=== PATIENT | male | born 2000 | race Two or more races ===

== ENCOUNTER 2022-11-17 05:38 | Emergency (ER) | payer OTHER ==
[2022-11-17 06:16] VITALS: TEMP 98.3; BMI 33.0
[2022-11-17] MEDS ORDERED: SODIUM CHLORIDE 0.9% 500 ML INFUS.BAG IV ONE ×2 (08:33→12:19)
[2022-11-17] MEDS ORDERED: MAG HYDROX/AL HYDROX/SIMETH 30 ML UNIT-DOSE CUP PO ONE ×2 (08:41→12:19)
[2022-11-17] MEDS ORDERED: ACETAMINOPHEN 1000 MG/100 ML BAG IVPB ONE (08:41)
[2022-11-17] MEDS ORDERED: FAMOTIDINE 20 MG/50 ML IVPB 20 MG/50 ML MG IVPB ONE ×3 (08:41→12:19)
[2022-11-17] MEDS ORDERED: ACETAMINOPHEN INJECTION 100 ML IVPB ONE (08:57)
[2022-11-17] MEDS ORDERED: MAG HYDROX/AL HYDROX/SIMETH 30 ML UNIT-DOSE CUP ONE (08:57)
[2022-11-17 10:30] LABS: BASO % 0.3 % (0-2.0); EOS % 0.2 % (0-4.5); HEMATOCRIT 41.6 % (35.4-49); HEMOGLOBIN 13.5 GM/dL (11.7-16.9); MCH 23.1 pg (25.7-33.7); MCHC 32.5 g/dl (32.0-35.9); MEAN CELL VOLUME 70.9 fl (80-96); MEAN PLT VOLUME 8.4 fl (7.5-11.1); MONO % 5.5 % (3.8-10.2); PLATELET COUNT 279 10^3/uL (134-434); RBC 5.87 M/mm3 (4.00-5.60); RDW 14.9 % (11.9-15.9); WHITE BLOOD COUNT 8.9 K/mm3 (4.0-10.0)
[2022-11-17 10:45] LABS: POTASSIUM 3.8 mmol/L (3.5-5.1)
[2022-11-17 10:47] LABS: CALCIUM 9.4 mg/dL (8.5-10.1)
[2022-11-17 10:48] LABS: ALBUMIN 4.6 g/dl (3.4-5.0); BLOOD UREA NITROGEN 8.8 mg/dL (7-18)
[2022-11-17 10:51] LABS: CREATININE 0.8 mg/dL (0.55-1.3)
[2022-11-17 10:52] LABS: BILIRUBIN,TOTAL 0.4 mg/dL (0.2-1); TOT PROT 8.4 g/dl (6.4-8.2)
[2022-11-17 12:19] LABS: MAGNESIUM 2.2 mg/dL (1.8-2.4)
[2022-11-17 14:12] VITALS: BP 138/88; PULSE 75; RESP 14
== END 2022-11-17 14:12 | disposition home or self-care (01) ==
LOC: JER 05:38
PROC: 3E033GC Introduction of Other Therapeutic Substance into Peripheral Vein, Percutaneous Approach (ICD-10-PCS; principal; 2022-11-17)
DX: R00.2 Palpitations (principal); I49.3 Ventricular premature depolarization
CPT/HCPCS: 36415; 71046-TC-FY; 80053; 83735; 84443; 84484; 85025; 85379; 93005; 93010; 93308; 99285-25

== ENCOUNTER 2023-11-05 10:09 | Emergency (ER) | payer OTHER ==
[2023-11-05 10:13] VITALS: BP 130/80; PULSE 94; RESP 18; TEMP 98.6; BMI 28.5
== END 2023-11-05 12:17 | disposition home or self-care (01) ==
LOC: JER 10:09
DX: R00.2 Palpitations (principal)
CPT/HCPCS: 71046-TC-FY; 93005; 93010; 99284-25

== ENCOUNTER 2024-01-26 19:39 | Observation (INO) | payer OTHER ==
[2024-01-26 19:50] VITALS: BMI 29.0
[2024-01-26 22:05] LABS: BASO % 0.5 % (0-2.0); EOS % 2.2 % (0-4.5); HEMATOCRIT 43.4 % (35.4-49); LYMPH % 17.2 % (8-40); MCH 22.8 pg (25.7-33.7); MCHC 32.3 g/dl (32.0-35.9); MEAN CELL VOLUME 70.5 fl (80-96); MEAN PLT VOLUME 7.7 fl (7.5-11.1); MONO % 7.8 % (3.8-10.2); NEUT % 72.3 % (42.8-82.8); PLATELET COUNT 285 10^3/uL (134-434); RBC 6.17 M/mm3 (4.00-5.60); RDW 15.4 % (11.9-15.9); WHITE BLOOD COUNT 11.9 K/mm3 (4.0-10.0)
[2024-01-26 22:31] LABS: POTASSIUM 3.8 mmol/L (3.5-5.1)
[2024-01-26 22:33] LABS: ALBUMIN 4.1 g/dl (3.4-5.0); BLOOD UREA NITROGEN 10.9 mg/dL (7-18); CALCIUM 9.4 mg/dL (8.5-10.1)
[2024-01-26 22:37] LABS: CREATININE 0.7 mg/dL (0.55-1.3)
[2024-01-26 22:38] LABS: BILIRUBIN,TOTAL 0.2 mg/dL (0.2-1); TOT PROT 7.9 g/dl (6.4-8.2)
[2024-01-27 02:35] LABS: COCAINE, UR NEGATIVE (NEGATIVE); METHADONE, UR NEGATIVE (NEGATIVE); OPIATES, URI NEGATIVE (NEGATIVE); PHENCYCLIDINE,URINE NEGATIVE (NEGATIVE)
[2024-01-27 02:46] LABS: URINE AMPHETAMINES NEGATIVE (NEGATIVE); URINE BARBITURATES NEGATIVE (NEGATIVE); URINE BENZODIAZEPINES NEGATIVE (NEGATIVE)
[2024-01-27] MEDS: HYDROCHLOROTHIAZIDE 12.5 MG CAPSULE (FP) PO SCH (11:15)
[2024-01-28 08:28] LABS: BASO % 0.6 % (0-2.0); EOS % 6.6 % (0-4.5); HEMATOCRIT 38.7 % (35.4-49); HEMOGLOBIN 13.1 GM/dL (11.7-16.9); LYMPH % 29.2 % (8-40); MCH 23.5 pg (25.7-33.7); MCHC 33.8 g/dl (32.0-35.9); MEAN CELL VOLUME 69.6 fl (80-96); MEAN PLT VOLUME 7.9 fl (7.5-11.1); MONO % 8.4 % (3.8-10.2); NEUT % 55.2 % (42.8-82.8); PLATELET COUNT 276 10^3/uL (134-434); RBC 5.56 M/mm3 (4.00-5.60); RDW 14.7 % (11.9-15.9); WHITE BLOOD COUNT 8.2 K/mm3 (4.0-10.0)
[2024-01-28 08:46] LABS: POTASSIUM 4.2 mmol/L (3.5-5.1)
[2024-01-28 08:48] LABS: CALCIUM 9.4 mg/dL (8.5-10.1)
[2024-01-28 08:50] LABS: ALBUMIN 3.8 g/dl (3.4-5.0); BLOOD UREA NITROGEN 13.3 mg/dL (7-18)
[2024-01-28 08:52] LABS: CREATININE 0.7 mg/dL (0.55-1.3)
[2024-01-28 08:54] LABS: BILIRUBIN,TOTAL 0.4 mg/dL (0.2-1); TOT PROT 7.6 g/dl (6.4-8.2)
[2024-01-29 07:10] LABS: HEMATOCRIT 39.6 % (35.4-49); HEMOGLOBIN 13.3 GM/dL (11.7-16.9); MCH 23.5 pg (25.7-33.7); MCHC 33.5 g/dl (32.0-35.9); MEAN CELL VOLUME 70.2 fl (80-96); MEAN PLT VOLUME 8.1 fl (7.5-11.1); PLATELET COUNT 275 10^3/uL (134-434); RBC 5.64 M/mm3 (4.00-5.60); RDW 14.8 % (11.9-15.9); WHITE BLOOD COUNT 7.9 K/mm3 (4.0-10.0)
[2024-01-29 07:30] LABS: POTASSIUM 4.2 mmol/L (3.5-5.1)
[2024-01-29 07:37] LABS: ALBUMIN 3.8 g/dl (3.4-5.0); BLOOD UREA NITROGEN 12.7 mg/dL (7-18)
[2024-01-29 07:38] LABS: BILIRUBIN,TOTAL 0.4 mg/dL (0.2-1); CALCIUM 9.3 mg/dL (8.5-10.1); TOT PROT 7.5 g/dl (6.4-8.2)
[2024-01-29 07:41] LABS: CREATININE 0.7 mg/dL (0.55-1.3); PHOSPHOROUS 5.4 mg/dL (2.5-4.9)
[2024-01-29 14:20] VITALS: BP 112/72; PULSE 85; RESP 20; TEMP 98.1
[2024-02-02 18:08] LABS: RENIN ACTIVITY(PRA) 3.71 ng/mL/hr (0.167-5.380)
== END 2024-01-29 17:34 | disposition home or self-care (01) ==
LOC: JER 19:39 → JERBED 22:56 → J4W 01-28 18:03
PROVIDERS: ADMIT Internal Medicine; ATTEND Internal Medicine
DX: R07.89 Other chest pain (principal); I10 Essential (primary) hypertension; R79.89 Other specified abnormal findings of blood chemistry; R00.2 Palpitations
CPT/HCPCS: 36415; 71046-TC-FY; 76775-TC; 80053; 80307; 82088; 82533; 83735; 84100; 84244; 84443; 84484; 85025; 85027; 93005; 93010; 93306-TC; 93351; 93975; 99285-25; G0378